=== PATIENT | female | born 1995 | race Caucasian/White ===

== ENCOUNTER 2021-01-21 21:11 | Observation (INO) | payer BC ==
[2021-01-21 21:30] VITALS: BMI 26.2
[2021-01-21] MEDS ORDERED: hydrALAZINE 20 MG/ML VIAL SLOW IVP PRN ×2 (21:56→23:09)
[2021-01-21] MEDS ORDERED: Ondansetron PF 4 MG/2 ML Vial IVP PRN ×2 (21:57→23:09)
[2021-01-21] MEDS ORDERED: Lactated Ringer's 1,000 ML IV SCH ×2 (22:00)
[2021-01-21 22:10] LABS: #Basophils 0.1 10x3/uL (0.0-0.2); #Monocytes 0.6 10x3/uL (0.0-1.1); #Neutrophils 17.3 10x3/uL (1.5-8.4); %Basophils 0.4 % (0.0-2.0); %Lymphocytes 3.9 % (18.0-47.0); %Monocytes 3.3 % (0.0-10.0); %Neutrophils 90.7 % (40.0-75.0); Hemoglobin 12.6 g/dL (12.0-15.5); Mean Corpuscular HGB CONC 33.3 g/dL (32.0-36.0); Mean Corpuscular Hemoglobin 29.2 pg (27.0-33.0); Mean Corpuscular Volume 87.5 fl (81.6-98.3); Mean Platelet Volume 10.8 fl (7.4-10.4); Platelet Count 229 10x3/uL (150-450); RBC Distribution Width 13.5 % (11.5-14.5); Red Blood Cell (RBC) Count 4.32 10x6/uL (3.90-5.03)
[2021-01-21 22:18] LABS: Bilirubin Neg (Negative); Blood, Urine Negative (Negative); Clarity Slightly Cloudy (Clear); Glucose, Urine (Dipstick) Normal (Negative); Ketone, Urine 150 mg/dL (Negative); Leukocyte 25 (Negative); Nitrite Negative (Negative); Protein, Urine (Dipstick) 30 mg/dl (Neg-Trace); Specific Gravity, Urine 1.025 (1.002-1.036); Urobilinogen Normal mg/dL (Less than 2)
[2021-01-21 22:22] LABS: ALT (SGPT) 12 U/L (8-55); AST (SGOT) 17 U/L (5-34); Albumin 3.8 g/dL (3.5-5.0); Alkaline Phosphatase 139 U/L (40-110); Anion Gap 21 mmol/L (10-20); BUN (Urea Nitrogen) 12 mg/dL (7.0-18.7); Bilirubin, Total 0.5 mg/dL (0.2-1.2); Calc. Creatinine Clearance 136 mL/min (70-130); Calcium 8.9 mg/dL (7.8-10.44); Carbon Dioxide 18 mmol/L (22-29); Chloride 105 mmol/L (98-107); Globulin 2.5 g/dL (2.4-3.5); Glucose 103 mg/dL (70-105); Potassium 3.6 mmol/L (3.5-5.1); Protein, Total 6.3 g/dL (6.0-8.3); Sodium 140 mmol/L (136-145)
[2021-01-21 22:27] LABS: Renal Epithelial 0-3 HPF (None Seen)
[2021-01-21 22:28] LABS: Bacteria/HPF 3+ HPF (None Seen); RBC/HPF 0-3 HPF (0-3)
[2021-01-21] MEDS ORDERED: Butorphanol Tartrate 1 MG/ML VIAL SLOW IVP PRN (23:09)
[2021-01-21] MEDS ORDERED: Promethazine HCl 25 MG/ML VIAL IM PRN (23:09)
[2021-01-21] MEDS ORDERED: cefTRIAXone\\ROCEPHIN 1 GM in Sodium Chloride 0.9% 100 ML IVPB SCH (23:59)
== END 2021-01-22 14:00 | disposition home health service (06) ==
LOC: CSHLD/OP 21:11 → CSHLD 23:09
PROVIDERS: ADMIT Obstetrics & Gynecology; ATTEND Obstetrics & Gynecology
DX: O99.891 Other specified diseases and conditions complicating pregnancy (principal); R10.9 Unspecified abdominal pain; O21.2 Late vomiting of pregnancy; Z3A.36 36 weeks gestation of pregnancy; Z79.82 Long term (current) use of aspirin; Z88.1 Allergy status to other antibiotic agents; Z88.5 Allergy status to narcotic agent
CPT/HCPCS: 36415; 80053; 81003; 81015; 85025; 87086; 99285; J0696; J2405; J3490

== ENCOUNTER 2021-02-04 10:50 | Outpatient (CLI) | payer BC ==
[2021-02-04 22:35] LABS: SARS-CoV-2 PCR by NAA Not Detected (NotDetected)
== END 2021-02-04 10:51 | disposition home or self-care (01) ==
LOC: CSHLAB 10:50
PROVIDERS: ATTEND Obstetrics & Gynecology
DX: Z20.822 Contact with and (suspected) exposure to COVID-19 (principal)
CPT/HCPCS: 87635; U0003; U0005

== ENCOUNTER 2021-02-07 10:40 | Inpatient (IN) | payer BC ==
[2021-02-07] MEDS ORDERED: Ondansetron PF 4 MG/2 ML Vial IVP PRN ×3 (10:58→14:36)
[2021-02-07] MEDS ORDERED: Bicitra 30 ML UDCUP PO PRN (10:58)
[2021-02-07] MEDS ORDERED: hydrALAZINE 20 MG/ML VIAL SLOW IVP PRN ×2 (10:58→14:36)
[2021-02-07] MEDS ORDERED: CEFAZOLIN 2 GM in Premix Bag 1 BAG IVPB SCH (10:58)
[2021-02-07] MEDS ORDERED: Lactated Ringer's 1,000 ML IV SCH (10:58)
[2021-02-07] MEDS ORDERED: Famotidine/PF 20 mg/2ml Vial SLOW IVP PRN (10:58)
[2021-02-07] MEDS ORDERED: Promethazine HCl 25 MG/ML VIAL IM PRN ×2 (10:58→13:33)
[2021-02-07 11:01] VITALS: BMI 26.2
[2021-02-07 11:25] LABS: Hemoglobin 11.8 g/dL (12.0-15.5); Mean Corpuscular HGB CONC 33.6 g/dL (32.0-36.0); Mean Corpuscular Hemoglobin 28.9 pg (27.0-33.0); Mean Corpuscular Volume 85.8 fl (81.6-98.3); Platelet Count 230 10x3/uL (150-450); RBC Distribution Width 13.1 % (11.5-14.5); Red Blood Cell (RBC) Count 4.09 10x6/uL (3.90-5.03); White Blood Cell (WBC) Count 14.6 10x3/uL (3.5-10.5)
[2021-02-07 11:55] LABS: Hep B Surf Ag Non-Reactive S/CO (NonReactive); Syphilis Antibody Nonreactive (Nonreactive); Syphilis Antibody Index 0.03 S/CO (<1.00 Non-Reactive)
[2021-02-07 11:58] LABS: HBSAg Index 0.14 S/CO (0-0.99)
[2021-02-07] MEDS ORDERED: ePHEDrine Sulfate 50 MG/10 ML VIAL ONE (12:02)
[2021-02-07] MEDS ORDERED: Ketorolac Tromethamine 30 MG/ML VIAL ONE (12:02)
[2021-02-07] MEDS ORDERED: Morphine PF 10 MG/10 ML VIAL ONE (12:02)
[2021-02-07] MEDS ORDERED: Fentanyl 100 MCG/2 ML VIAL ONE (12:02)
[2021-02-07] MEDS ORDERED: Ondansetron PF 4 MG/2 ML Vial ONE (12:13)
[2021-02-07] MEDS ORDERED: Oxytocin 10 UNITS/ML VIAL ONE (12:13)
[2021-02-07] MEDS ORDERED: Phenylephrine 10 MG/ML VIAL ONE (12:13)
[2021-02-07] MEDS ORDERED: Naloxone HCl 0.4 mg/ml Vial IV PRN (13:33)
[2021-02-07] MEDS ORDERED: Promethazine HCl 25 MG SUPP PR PRN (13:33)
[2021-02-07] MEDS ORDERED: Ketorolac Tromethamine 30 MG/ML VIAL IVP PRN (13:33)
[2021-02-07] MEDS ORDERED: Naloxone HCl 0.4 mg/ml Vial IVP PRN ×2 (13:33)
[2021-02-07] MEDS ORDERED: diphenhydrAMINE 50 MG/ML VIAL IVP PRN (13:33)
[2021-02-07] MEDS ORDERED: Communication Order-Pharmacy FS SCH (13:45)
[2021-02-07] MEDS ORDERED: Hydrocerin (Eucerin) Cream 120 gm Jar TOP PRN (14:09)
[2021-02-07] MEDS ORDERED: Simethicone Chewable 80 MG TAB PO PRN (14:36)
[2021-02-07] MEDS ORDERED: Lanolin Ointment 7 GM TUBE TOP PRN (14:36)
[2021-02-07] MEDS ORDERED: Misoprostol 200 MCG TAB PR PRN (14:36)
[2021-02-07] MEDS ORDERED: Zolpidem Tartrate 5 MG TAB PO PRN (14:36)
[2021-02-07] MEDS ORDERED: HYDROcodone/Acetaminophen 5/325 mg Tablet PO PRN ×2 (14:36)
[2021-02-07] MEDS ORDERED: Adacel (T-DAP) 0.5 ML SYRINGE IM ONE (14:36)
[2021-02-07] MEDS ORDERED: Acetaminophen 325 MG TAB PO PRN (14:36)
[2021-02-07] MEDS ORDERED: Meperidine HCl/PF 25 MG/ML VIAL IM PRN (14:36)
[2021-02-07] MEDS ORDERED: Bisacodyl 10 MG SUPP PR PRN (14:36)
[2021-02-07] MEDS ORDERED: diphenhydrAMINE 25 MG CAP PO PRN (14:36)
[2021-02-07] MEDS ORDERED: NS w/ Oxytocin 30 units 500 ML IV SCH (15:00)
[2021-02-07] MEDS: Lactated Ringer's 1,000 ML IV SCH ×2 (17:25→20:00)
[2021-02-08] MEDS: Ferrous Sulfate 325 MG TAB PO SCH ×3 (02:25→23:01)
[2021-02-08] MEDS: Docusate Calcium (SURFAK) 240 MG CAP PO SCH ×3 (02:25→21:45)
[2021-02-08] MEDS: Ibuprofen 800 MG TAB PO SCH ×5 (02:25→21:45)
[2021-02-08] MEDS: Lactated Ringer's 1,000 ML IV SCH ×3 (07:11→23:01)
[2021-02-08 07:30] LABS: Hemoglobin 10.3 g/dL (12.0-15.5); Mean Corpuscular HGB CONC 33.3 g/dL (32.0-36.0); Mean Corpuscular Hemoglobin 29.1 pg (27.0-33.0); Mean Corpuscular Volume 87.3 fl (81.6-98.3); Platelet Count 194 10x3/uL (150-450); RBC Distribution Width 13.4 % (11.5-14.5); Red Blood Cell (RBC) Count 3.54 10x6/uL (3.90-5.03); White Blood Cell (WBC) Count 17.1 10x3/uL (3.5-10.5)
[2021-02-08] MEDS: Prenatal Vitamin 1 TAB PO SCH (09:12)
[2021-02-09] MEDS: Ibuprofen 800 MG TAB PO SCH (05:48)
[2021-02-09] MEDS: Lactated Ringer's 1,000 ML IV SCH (07:10)
[2021-02-09 08:26] VITALS: BP 114/75; TEMP 98.5
[2021-02-09] MEDS: Ferrous Sulfate 325 MG TAB PO SCH (08:47)
[2021-02-09] MEDS: Prenatal Vitamin 1 TAB PO SCH (08:47)
[2021-02-09] MEDS: Docusate Calcium (SURFAK) 240 MG CAP PO SCH (08:50)
== END 2021-02-09 13:45 | disposition home or self-care (01) | DRG 788 ==
LOC: CSHLD 10:40 → EDSTATUS 12:30 → CSHPP 17:30
PROVIDERS: ADMIT Obstetrics & Gynecology; ATTEND Obstetrics & Gynecology
PROC: 10D00Z1 Extraction of Products of Conception, Low, Open Approach (ICD-10-PCS; principal; 2021-02-07)
DX: O32.1XX0 Maternal care for breech presentation, not applicable or unspecified (principal); Z3A.39 39 weeks gestation of pregnancy; Z37.0 Single live birth; O99.02 Anemia complicating childbirth; D64.9 Anemia, unspecified; O99.52 Diseases of the respiratory system complicating childbirth; J45.909 Unspecified asthma, uncomplicated; Z86.16 Personal history of COVID-19
CPT/HCPCS: 36415; 51702; 85027; 86780; 86850; 86900; 86901; 87340; 87635; J1885; J2274; J2370; J2405; J3010; U0003; U0005